=== PATIENT | male | born 1965 | race African-American/Black ===

== ENCOUNTER 2019-06-06 22:43 | Inpatient (IN) | payer OTHER ==
[2019-06-06 23:09] VITALS: BMI 31.4
--- NOTE | 2019-06-07 00:24 | HP ---
CIWA Score Nausea/Vomitin-No Nausea/No Vomiting Muscle Tremors: None Anxiety: 0-No Anxiety, at Ease Agitation: 0-Normal Activity Paroxysmal Sweats: No Perspiration Orientation: 1-Uncertain about Date Tacttile Disturbances: 0-None Auditory Disturbances: 0-None Visual Disturbances: 0-None Headache: 0-None Present CIWA-Ar Total Score: 1 - Admission Criteria OASAS Guidelines: Admission for Medically Managed Detox: Requires at least one of the followin. CIWA greater than 12 2. Seizures within the past 24 hours 3. Delirium tremens within the past 24 hours 4. Hallucinations within the past 24 hours 5. Acute intervention needed for co occurring medical disorder 6. Acute intervention needed for co occurring psychiatric disorder 7. Severe withdrawal that cannot be handled at a lower level of care (continued vomiting, continued diarrhea, abnormal vital signs) requiring intravenous medication and/or fluids 8. Patient presents the following: None of the above Admission Criteria Met: Admission criteria not met Admission ROS S - [facility] Chief Complaint: Here for detox from alcohol and drugs" Allergies/Adverse Reactions: Allergies Allergy/AdvReac Type Severity Reaction Status Date / Time No Known Allergies Allergy Verified 06/07/19 03:10 History of Present Illness: First [facility] admission for this 54 yo w/ presents seeking detox from alcohol and cocaine. Was seen in [facility] [place] ED on 06/06/19 for medication refill, headache, neck pain, back pain. Dx from = Essential HTN; Depression, NOS; and cocaine abuse. Medications given in hospital reviewed. Utox: + NICK/MET YUMIKO: 0.0 Denies seizures. Blackout years ago. Overdose on alcohol and cocaine 5 years ago. Alcohol use began at age 14. Last drink about 8 am this a.m. States currently drinks 1- 6pk beer and 1/2 of Vodka daily x 2 months. States when stops drinks has shakes after a few days. Denies previous alcohol treatments. Longest sobriety 1 yr r/t incarceration - 3 months ago. Cocaine use began at age 21. Currently smokes $100/day. Based on CIWA and hx, patient is not eligible for detox and will be admitted to rehab. PMHx: Degenerative discs, HTN (on meds); lump on back MHHx: Depression - on Seroquel - started 2 weeks ago. Does not have a psychiatrist. SHx; Domiciled. Unemployed. Denies legal problems. Search Terms: Raulito Michele, 1965 Search Date: 06/07/2019 12:38:44 AM The Drug Utilization Report below displays all of the controlled substance prescriptions, if any, that your patient has filled in the last twelve months. The information displayed on this report is compiled from pharmacy submissions to the Department, and accurately reflects the information as submitted by the pharmacies. This report was requested by: Laura Michele | Reference #: [id number] There are no results for the search terms that you entered. Exam Limitations: Other (Drowsy) - Ebola screening Have you traveled outside of the country in the last 21 days: No Have you had contact with anyone from an Ebola affected area: No Have you been sick,other than usual withdrawal symptoms: No Do you have a fever: No - Review of Systems Constitutional: Diaphoresis (When in hospital earlier) EENT: reports: Blurred Vision Respiratory: reports: No Symptoms reported Cardiac: reports: No Symptoms Reported GI: reports: No Symptoms Reported : reports: No Symptoms Reported Musculoskeletal: reports: Back Pain (Sharp low back and neck pain "8/10". Present all the time. Rest improves. Increases w/ walking.), Joint Pain ((R) shoulder pain r/t fall 1 week ago.) Integumentary: reports: Lumps (On back x 1 year) Neuro: reports: No Symptoms reported Endocrine: reports: Increased Thirst Hematology: reports: No Symptoms Reported Psychiatric: reports: Orientated x3 (Unsure of exact date.), Depressed (Denies thoughts of harming self or others.) Patient History - PPD History Previous Implant?: Yes Documented Results: Negative w/o proof Implanted On Prior [facility] Admission?: No PPD to be Administered?: Yes - Smoking Cessation Smoking history: Current every day smoker Have you smoked in the past 12 months: Yes Aproximately how many cigarettes per day: 10 Hx Chewing Tobacco Use: No Initiated information on smoking cessation: Yes 'Breaking Loose' booklet given: 06/07/19 - Substance & Tx. History Hx Alcohol Use: Yes Hx Substance Use: Yes Substance Use Type: Alcohol, Cocaine Hx Substance Use Treatment: No - Substances abused Alcohol Substance route: Oral Frequency: Daily Amount used: 1pt of vodka,3 (24 oz ) Beers Age of first use: 14 Date of last use: 06/06/19 Admission Physical Exam S - Vital Signs Vital Signs: Vital Signs - 24 hr 06/06/19 06/06/19 22:46 23:40 Temperature 97.8 F 97.8 F Pulse Rate 72 72 Respiratory 16 16 Rate Blood Pressure 110/68 110/68 - Physical General Appearance: Yes: Nourished, Other (Drowsy but easily arousable) HEENTM: Yes: EOMI, Normocephalic, Normal Voice, MEÑO, Pharynx Normal Respiratory: Yes: Lungs Clear, Normal Breath Sounds, No Respiratory Distress Neck: Yes: No masses,lesions,Nodules, Supple Breast: Yes: Breast Exam Deferred Cardiology: Yes: Regular Rhythm, Regular Rate, S1, S2 Abdominal: Yes: Non Tender, Soft, Increased Bowel Sounds Genitourinary: Yes: Within Normal Limits Back: Yes: Other (small, firm but soft, mass (R) lateral back, approx 5 cm. non- tender, w/o erythema or increased warmth.) Musculoskeletal: Yes: full range of Motion, Gait Steady Extremities: Yes: Normal Capillary Refill Neurological: Yes: television repairer II-XII NML intact, Fully Oriented, Alert, Motor Strength 5/5 Integumentary: Yes: Normal Color, Dry, Warm, Other (Thickened, flaky, elongated toenails w/ skin on feet very dry.) Lymphatic: Yes: Within Normal Limits - Diagnostic (1) Alcohol abuse, uncomplicated Current Visit: Yes Status: Chronic (2) Cocaine dependence, uncomplicated Current Visit: Yes Status: Chronic (3) Lipoma Current Visit: Yes Status: Chronic Qualifiers: Lipoma location: other site Qualified Code(s): D17.79 - Benign lipomatous neoplasm of other sites Comment: States PCP aware and scheduled to be removed in July. (4) Nicotine dependence, unspecified, uncomplicated Current Visit: Yes Status: Chronic Qualifiers: Nicotine product type: cigarettes Qualified Code(s): F17.210 - Nicotine dependence, cigarettes, uncomplicated (5) Chronic low back pain Current Visit: Yes Status: Chronic Qualifiers: Back pain laterality: unspecified Sciatica presence: unspecified whether sciatica present Qualified Code(s): M54.5 - Low back pain; G89.29 - Other chronic pain (6) Essential (primary) hypertension Current Visit: Yes Status: Chronic Cleared for Admission [facility] - Detox or Rehab Claeared for Rehab Admission: Yes Breathalyzer - Breathalyzer Breathalyzer: 0 Urine Drug Screen - Test Device Lot number: [id number] Expiration date: 02/12/21 - Control Is test valid?: Yes - Results Drug screen NEGATIVE: No Urine drug screen results: NICK-Cocaine, MET-Methamphetamine Inpatient Rehab Admission - Rehab Decision to Admit Inpatient rehab admission?: Yes - Initial Determination Are CD services needed?: Yes Free of communicable disease: Yes Not in need of hospitalization: Yes - Rehab Admission Criteria Previous failed treatment: Yes Poor recovery environment: Yes Comorbidities: Yes Lacks judgement: No Patient is meeting Inpatient Rehab admission criteria:: Yes
[2019-06-07] MEDS ORDERED: LOPERAMIDE HCL 2 MG CAPSULE PO PRN (03:57)
[2019-06-07] MEDS ORDERED: hydrOXYzine PAMOATE 50 MG CAPSULE (FP) PO PRN ×2 (03:57→04:37)
[2019-06-07] MEDS ORDERED: ACETAMINOPHEN 325 MG TABLET (FP) PO PRN (03:57)
[2019-06-07] MEDS ORDERED: P-EPHED 60MG/TRIPROLIDI 2.5MG TABLET PO PRN (03:57)
[2019-06-07] MEDS ORDERED: MENTHOL/PHENOL 1 EACH UD MM PRN (03:57)
[2019-06-07] MEDS ORDERED: MAG HYDROX/AL HYDROX/SIMETH 30 ML UNIT-DOSE CUP PO PRN (03:57)
[2019-06-07] MEDS ORDERED: MAGNESIUM HYDROX 2400MG/30ML ORAL SUSPENSION 30 ML CUP PO PRN (03:57)
[2019-06-07] MEDS ORDERED: MAGNESIUM CITRATE 300 ML BOTTLE PO PRN (03:57)
[2019-06-07] MEDS ORDERED: NICOTINE POLACRILEX 2 MG GUM BUC PRN (03:57)
[2019-06-07] MEDS ORDERED: guaiFENesin 200 MG/10 ML 10 ML UNIT-DOSE CUPS PO PRN (03:57)
[2019-06-07] MEDS ORDERED: NAPROXEN SODIUM 500 MG PO PRN (04:00)
[2019-06-07] MEDS ORDERED: QUEtiapine FUMARATE 25 MG TABLET (FP) PO ONE (04:01)
[2019-06-07] MEDS ORDERED: TUBERCULIN PPD 5 TU/0.1ML VIAL ID ONE (06:36)
[2019-06-07] MEDS: PRENATAL VITAMINS W/ FOLIC ACID TABLET (FP) PO SCH (09:55)
[2019-06-07] MEDS: NICOTINE 14 MG/24 HOURS TOPICAL PATCH TD SCH (09:55)
[2019-06-07] MEDS: amLODIPine BESYLATE 10 MG TABLET (FP) PO SCH (09:55)
[2019-06-07] MEDS: GABAPENTIN 100 MG CAPSULE (FP) PO SCH ×2 (09:55→21:38)
[2019-06-07] MEDS: TOLNAFTATE 1% CREAM 15 GM TUBE TP SCH ×2 (10:29→21:25)
[2019-06-07 13:19] LABS: URINE COLOR YELLOW
[2019-06-07 13:20] LABS: URINE GLUCOSE (UA) NEGATIVE (NEGATIVE); URINE KETONE TRACE (NEGATIVE)
[2019-06-07 13:23] LABS: URINE APPEARANCE CLOUDY; URINE BILIRUBIN 1+ (NEGATIVE); URINE NITRITE NEGATIVE (NEGATIVE); URINE PROTEIN 1+ (NEGATIVE)
[2019-06-07 13:24] LABS: URINE LEUK ESTERASE NEGATIVE (NEGATIVE); URINE RBC 1.5 /hpf (0-4); URINE WBC 6.9 /hpf (0-5)
[2019-06-07 13:25] LABS: HYALINE CASTS 260.39 /lpf (0-8); URINE BACTERIA 0.5 /hpf (NEGATIVE)
[2019-06-07 16:23] LABS: HEMATOCRIT 37.6 % (35.4-49); HEMOGLOBIN 12.5 GM/dL (11.7-16.9); MCH 30.6 pg (25.7-33.7); MCHC 33.3 g/dl (32.0-35.9); MEAN CELL VOLUME 91.7 fl (80-96); MEAN PLT VOLUME 8.3 fl (7.5-11.1); PLATELET COUNT 284 K/MM3 (134-434); RDW 14.9 % (11.9-15.9); WHITE BLOOD COUNT 4.1 K/mm3 (4.0-10.0)
[2019-06-07 16:31] LABS: ALBUMIN 3.7 g/dl (3.4-5.0); BILIRUBIN,TOTAL 0.2 mg/dL (0.2-1); BLOOD UREA NITROGEN 30.5 mg/dL (7-18); CALCIUM 8.9 mg/dL (8.5-10.1); CREATININE 1.8 mg/dL (0.55-1.3); POTASSIUM 3.6 mmol/L (3.5-5.1); TOT PROT 6.5 g/dl (6.4-8.2)
--- NOTE | 2019-06-07 17:51 | EKG ---
Test Reason : Blood Pressure : / mmHG Vent. Rate : 070 BPM Atrial Rate : 070 BPM P-R Int : 142 ms QRS Dur : 086 ms QT Int : 428 ms P-R-T Axes : 061 054 034 degrees QTc Int : 462 ms NORMAL SINUS RHYTHM NONSPECIFIC T WAVE ABNORMALITY PROLONGED QT ABNORMAL ECG NO PREVIOUS ECGS AVAILABLE Confirmed by MD Glory, Robert ([id number]) on 06/07/2019 5:51:28 PM Referred By: Candido Nuno Confirmed By:Robert Holder MD
--- NOTE | 2019-06-07 17:57 | PN ---
S Progress Note Note: Psychiatry Attending's note : Attempt made to evaluate this patient. Mr Michele is found asleep. Resting comfortably. Nurse is made aware.
[2019-06-07] MEDS: THIAMINE HCL 100 MG TABLET (FP) PO SCH (21:38)
[2019-06-07] MEDS ORDERED: MELATONIN 5 MG TABLETS PO PRN (22:00)
[2019-06-08] MEDS: amLODIPine BESYLATE 10 MG TABLET (FP) PO SCH (10:11)
[2019-06-08] MEDS: GABAPENTIN 100 MG CAPSULE (FP) PO SCH ×2 (10:11→21:26)
[2019-06-08] MEDS: PRENATAL VITAMINS W/ FOLIC ACID TABLET (FP) PO SCH (10:11)
[2019-06-08] MEDS: NICOTINE 14 MG/24 HOURS TOPICAL PATCH TD SCH (10:12)
[2019-06-08] MEDS: TOLNAFTATE 1% CREAM 15 GM TUBE TP SCH ×2 (10:12→21:28)
--- NOTE | 2019-06-08 15:00 | CONSULT ---
[facility] Psychiatric Consult - Data Date of interview: 06/08/19 Admission source: [facility] Identifying data: Patient is a 54 year old male, , father of three, unemployed, resides with son, and is supported by food stamps. This is patient's first admission to rehab at [facility]. Patient admitted to for alcohol and cocaine dependence. Substance Abuse History: Smoking Cessation. Smoking history: Current every day smoker. Have you smoked in the past 12 months: Yes. Aproximately how many cigarettes per day: 10. Hx Chewing Tobacco Use: No. Initiated information on smoking cessation: Yes. 'Breaking Loose' booklet given: 06/07/19. - Substance & Tx. History. Hx Alcohol Use: Yes. Hx Substance Use: Yes. Substance Use Type : Alcohol, Cocaine. Hx Substance Use Treatment: No. - Substances abused. Alcohol. Substance route: Oral. Frequency: Daily. Amount used: 1pt of vodka, 3 (24 oz ) Beers. Age of first use: 14. Date of last use: 06/06/19 Medical History: Degenerative discs, HTN Psychiatric History: Patient's first psychiatric contact was in the due to depression and suicidal thoughts. He was admitted to [facility] ( multiple hospitalizations at this facility) in the [facility], diagnosed with bipolar disorder and prescribed psychtropic medications. Mr. Michele was most recently discharged one week ago from [facility] psychiatric unit after being admitted for depression and hearing voices. Reports being discharged with a prescription of seroquel 50mg BID and another psychtropic agent he can't recalll. States that his dosages of seroquel was changed to 25mg BID while at [facility] for detox several days ago as he was complaining of sedation. Reports additional diagnosis of depression, bipolar disorder and schizophrenia. Mr. Michele reports history of paranoid ideation of believing people are watching him with their phone or that people are setting him up. Also states that the voices tell him that people are out to get him and kill him. Denies psychotic symptoms at this time. Mr. Michele reports history of sub-optimal adherence to treatment. States that due to the lack of stability in his life, it is difficult to remain compliant with treatment. Patient currently denies auditory/visual hallucinations. No psychosis noted. Physical/Sexual Abuse/Trauma History: denies. Mental Status Exam - Mental Status Exam Alert and Oriented to: Time, Place, Person Cognitive Function: Good Patient Appearance: Well Groomed Mood: Withdrawn Affect: Flat Patient Behavior: Appropriate, Cooperative Speech Pattern: Appropriate Voice Loudness: Normal Thought Process: Goal Oriented Thought Disorder: Not Present Hallucinations: Denies Suicidal Ideation: Denies Homicidal Ideation: Denies Insight/Judgement: Poor Sleep: Fair Appetite: Fair Muscle strength/Tone: Normal Gait/Station: Normal Psychiatric Findings - Problem List ([place] 1, 2,3) (1) Alcohol abuse, uncomplicated Status: Chronic Comment: . (2) Cocaine dependence, uncomplicated Status: Chronic Comment: . (3) Nicotine dependence, unspecified, uncomplicated Status: Chronic Qualifiers: Nicotine product type: cigarettes Qualified Code(s): F17.210 - Nicotine dependence, cigarettes, uncomplicated Comment: . (4) Schizophrenia Status: Chronic Qualifiers: Schizophrenia type: paranoid schizophrenia Qualified Code(s): F20.0 - Paranoid schizophrenia - Initial Treatment Plan Initial Treatment Plan: Psychoeducation provided. Rehab in progress. Able to speak to patient's son, Mr. Raulito Munguia at # [phone]. Patient's son was unable to provide information on patient's medication as he was not in his home. [facility] pharmacy then contacted at and able to speak to pharmacist. As per pharmacist only gabapentin 100mg TID and blood pressure medications are displayed in his [facility] records. Patient's son should be contacted again in hopes of receiving collateral information on patient's medications. Will order Seroquel 50mg HS. Benefits and side effects discussed. Vebal consent given.
[2019-06-08] MEDS: THIAMINE HCL 100 MG TABLET (FP) PO SCH (21:26)
[2019-06-08] MEDS ORDERED: QUEtiapine FUMARATE 50 MG TABLET PO SCH (22:00)
[2019-06-09 07:17] VITALS: BP 147/93; PULSE 97; TEMP 99
[2019-06-09] MEDS: PRENATAL VITAMINS W/ FOLIC ACID TABLET (FP) PO SCH (10:33)
[2019-06-09] MEDS: NICOTINE 14 MG/24 HOURS TOPICAL PATCH TD SCH (11:10)
[2019-06-09] MEDS: TOLNAFTATE 1% CREAM 15 GM TUBE TP SCH (11:10)
[2019-06-09] MEDS: amLODIPine BESYLATE 10 MG TABLET (FP) PO SCH (11:10)
[2019-06-09] MEDS: GABAPENTIN 100 MG CAPSULE (FP) PO SCH (11:10)
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
== END 2019-06-09 16:15 | disposition left against medical advice (07) | DRG 770 ==
LOC: YASAS 22:43 → Y5N 06-07 01:22
PROVIDERS: ADMIT Allergy & Immunology; ATTEND Allergy & Immunology
PROC: HZ42ZZZ Group Counseling for Substance Abuse Treatment, Cognitive-Behavioral (ICD-10-PCS; principal; 2019-06-07)
DX: F10.20 Alcohol dependence, uncomplicated (principal); F14.20 Cocaine dependence, uncomplicated; F17.210 Nicotine dependence, cigarettes, uncomplicated; F20.0 Paranoid schizophrenia; D17.79 Benign lipomatous neoplasm of other sites; I10 Essential (primary) hypertension; M54.2 Cervicalgia; M54.5 Low back pain; G89.29 Other chronic pain
CPT/HCPCS: 36415; 80053; 81003; 85027; 86593; 93005; 93010